=== PATIENT | male | born 1970 | race African-American/Black ===

== ENCOUNTER 2017-08-20 16:59 | Emergency (ER) | payer MEDICAID, OTHER ==
[~2017-08-20] VITALS: Ht 182.9 cm; Wt 113.4 kg
[~2017-08-20 16:59] MED LIST: ZYPREXA10 MG ORAL
[2017-08-20 19:45] VITALS: BP 148/90
[2017-08-20 21:00] VITALS: BP 152/85
--- NOTE | 2017-08-20 21:01 | Emergency Room Report ---
History of Present Illness General Chief Complaint: General Complaint Source: Patient, EMS Present Illness HPI The patient is a 47 yo M presenting for alcohol intoxication. BIB EMS. He admits to drinking alcohol and denies using drugs. He denies any complaints at this time including N, V, F, chills, CP, SOB Allergies: Coded Allergies: NO KNOWN ALLERGIES (Unverified Allergy, Unknown, 08/23/15) UNABLE TO ASSESS (Unverified , 08/20/17) Patient History Past Medical History: see triage record Pertinent Family History: none Social History: Reports: alcohol use Reviewed Nursing Documentation: PMH: Agreed, PSxH: Agreed Nursing Documentation-PMH History Of Psychiatric Problem: Yes Review of Systems All Other Systems: limited Physical Exam Vital Signs Date Time Temp Pulse Resp B/P (MAP) Pulse Ox O2 Delivery O2 Flow Rate FiO2 08/20/17 16:56 98.2 88 18 148/90 98 Room Air Sp02 EP Interpretation: reviewed, normal General Appearance: no apparent distress, alert, GCS 15, non-toxic Head: normocephalic, atraumatic Eyes: bilateral eye normal inspection, bilateral eye PERRL ENT: hearing grossly normal, normal pharynx, no angioedema, normal voice Neck: full range of motion, supple/symm/no masses Respiratory: chest non-tender, lungs clear, normal breath sounds, speaking full sentences Cardiovascular #1: regular rate, rhythm, no edema Gastrointestinal: normal bowel sounds, non tender, soft, non-distended, no guarding, no rebound Musculoskeletal: back normal, normal range of motion Neurologic: responsive, sensory intact Psychiatric: no suicidal/homicidal ideation, depressed affect Skin: warm/dry, normal turgor, other - dirty Lymphatic: no adenopathy Medical Decision Making PA Attestation Dr. Gonzalez is my supervising physician. Patient management was discussed with my supervising physician Diagnostic Impression: Primary Impression: Alcohol intoxication Qualified Codes: F10.920 - Alcohol use, unspecified with intoxication, uncomplicated ER Course The patient is a 47 yo M presenting for alcohol intoxication. DDx considered but not limited to: acute alcohol intoxication, hepatic encephalopathy, drug overdose, hypoglycemia, psychosis, among others Physical exam: Vitals are within normal limits. No apparent distress. Patient is lethargic. Head is normocephalic atraumatic. Pupils are equally round and reactive to light The patient is arousable by touch or name. Lungs are clear to auscultation bilaterally. No abdominal tenderness. Abdomen is soft. Otherwise exam is unremarkable The patient is given time to rest in the emergency department. Upon reevaluation, the patient is A&Ox3. He is ready for DC and is able to ambulate well. The patient be discharged home and given ER precautions. Patient was given advice on alcohol addiction Last Vital Signs Date Time Temp Pulse Resp B/P (MAP) Pulse Ox O2 Delivery O2 Flow Rate FiO2 08/20/17 19:45 98.2 18 148/90 98 Room Air 08/20/17 16:56 88 Status: improved Disposition: HOME, SELF-CARE Condition: Improved Referrals: [facility],REFERRING (PCP) JOSUÉ HA Aug 20, 2017 21:01
[2017-08-20 22:02] VITALS: BP 148/90
== END 2017-08-20 22:00 | disposition home or self-care (01) ==
LOC: EDBD 16:59 → EMR 17:11
DX: F10.129 Alcohol abuse with intoxication, unspecified (principal); Z86.59 Personal history of other mental and behavioral disorders
CPT/HCPCS: 99284